=== PATIENT | female | born 1945 | race African-American/Black ===

== ENCOUNTER 2017-07-04 18:12 | Emergency (ER) | payer OTHER ==
[~2017-07-04] VITALS: Ht 152.4 cm; Wt 59.0 kg
[~2017-07-04 18:12] MED LIST: ASPIR 8181 MG PO; FLUOROPLEX30 GM TP; HYDROCORTISONE3011 TP; KEFLEX500 MG PO; LIPITOR20 MG PO; LOSARTAN POTAS100 MG PO; NORVASC10 MG PO
[2017-07-04] MEDS ORDERED: TRAMADOL 50 MG50 MG PO (19:09)
== END 2017-07-04 19:38 | disposition home or self-care (01) ==
LOC: ER 18:12
DX: S62.634A Displaced fracture of distal phalanx of right ring finger, initial encounter for closed fracture (principal); I10 Essential (primary) hypertension; Z88.1 Allergy status to other antibiotic agents; W19.XXXA Unspecified fall, initial encounter; Y93.21 Activity, ice skating; Y92.89 Other specified places as the place of occurrence of the external cause; Y99.8 Other external cause status